=== PATIENT | female | born 1970 | race Caucasian/White ===

== ENCOUNTER 2019-02-07 15:30 | Emergency (ER) | payer MEDICAID ==
[~2019-02-07] VITALS: Ht 170.2 cm; Wt 75.0 kg
[2019-02-07] MEDS ORDERED: KETOROLAC 30MG/ML VIAL IV STA (18:39)
[2019-02-07] MEDS ORDERED: BACITRACIN ZINC OINT UDPKT TOP ONE (18:45)
[2019-02-07] MEDS ORDERED: LIDOCAINE 1%/EPI 1:100,000 10 ML VIAL IJ ONE (18:45)
[2019-02-07] MEDS ORDERED: VANCOMYCIN 1 G PREMIX 200 ML IV SCH (18:45)
[2019-02-07] MEDS ORDERED: LIDOCAINE HCL/EPINEPHRINE 1%-EPI 1:100,000 20 ML VIAL INFIL NR (20:30)
[2019-02-07] MEDS ORDERED: BACITRACIN 15GM TUBE TOP NR (20:30)
[2019-02-07 22:56] VITALS: BP 148/65
== END 2019-02-07 22:58 | disposition home or self-care (01) ==
LOC: ER 15:30
DX: S70.362A Insect bite (nonvenomous), left thigh, initial encounter (principal); W57.XXXA Bitten or stung by nonvenomous insect and other nonvenomous arthropods, initial encounter; Y93.9 Activity, unspecified; Y92.9 Unspecified place or not applicable
CPT/HCPCS: 96365; 96366; 96375; 99283; J1885; J3370; J3490; Z7610

== ENCOUNTER 2019-02-09 11:41 | Emergency (ER) | payer MEDICAID ==
[~2019-02-09] VITALS: Ht 162.6 cm; Wt 68.0 kg
[2019-02-09] MEDS ORDERED: AMOX125S12 PO (12:46)
[2019-02-09] MEDS ORDERED: IBUPROFEN 600MG TABLET PO ONE (14:45)
[2019-02-09 15:36] VITALS: BP 171/94
== END 2019-02-09 17:22 | disposition home or self-care (01) ==
LOC: ER 12:58
DX: L02.416 Cutaneous abscess of left lower limb (principal)
CPT/HCPCS: 99283

== ENCOUNTER 2019-02-12 11:26 | Emergency (ER) | payer MEDICAID ==
[~2019-02-12] VITALS: Ht 170.2 cm; Wt 75.0 kg
[~2019-02-12 11:26] MED LIST: AMOX125S12 PO
[2019-02-12 11:34] VITALS: BP 150/80
== END 2019-02-12 14:45 | disposition home or self-care (01) ==
LOC: ER 14:45
DX: Z48.00 Encounter for change or removal of nonsurgical wound dressing (principal)
CPT/HCPCS: 99281

== ENCOUNTER 2019-02-14 15:54 | Inpatient (IN) | payer MEDICAID ==
[~2019-02-14] VITALS: Ht 167.6 cm; Wt 76.2 kg
[2019-02-14] MEDS ORDERED: PIPERACILLIN/TAZ 3.375G PREMIX 50 ML IV ONE (18:00)
[2019-02-14] MEDS ORDERED: SODIUM CHLORIDE 0.9% 1000ML BAG (SEPSIS BOLUS) IV ONE (18:00)
[2019-02-14] MEDS ORDERED: VANCOMYCIN 1 G PREMIX 200 ML IV ONE (18:00)
[2019-02-14 18:07] LABS: EOSINOPHILS % 0.5 % (0.0-5.0); HEMATOCRIT. 33.1 % (36.0-48.0); HEMOGLOBIN. 10.9 g/dL (12.0-16.0); LYMPHOCYTES % 31.5 % (20.0-50.0); MEAN CORPUSCULAR HEMOGLOBIN 27.3 pg (28.0-32.0); MEAN CORPUSCULAR VOLUME 82.6 fL (81.0-99.0); MEAN PLATELET VOLUME 7.2 fl (7.4-10.4); MONOCYTES % 7.6 % (2.0-8.0); NEUTROPHILS % 59.4 % (40.0-76.0); PLATELET 477 x1000/uL (130-400); RED BLOOD CELL COUNT 4.01 mill/uL (4.2-5.4); RED CELL DISTRIBUTION WIDTH 16.4 % (11.6-14.6)
[2019-02-14 18:14] LABS: CHLORIDE 107 mEq/L (98-107); PROTHROMBIN TIME 10.2 sec (9.6-11.0)
[2019-02-14 18:20] LABS: C REACTIVE PROTEIN QUANT 3.1 mg/L (0.0-3.0)
[2019-02-14 18:21] LABS: CLARITY URINE CLEAR (CLEAR); COLOR URINE YELLOW (YELLOW); KETONES URINE NEGATIVE (NEGATIVE); LEUKOCYTE ESTERASE URINE NEGATIVE (NEGATIVE); NITRITE URINE NEGATIVE (NEGATIVE); OCCULT BLOOD URINE TRACE (NEGATIVE); PROTEIN URINE NEGATIVE (NEGATIVE); SPECIFIC GRAVITY URINE 1.027 (1.005-1.030); UROBILINOGEN URINE 0.2 E.U./dL (0.2-1.0)
[2019-02-14 21:00] VITALS: BP 168/86
[2019-02-14] MEDS ORDERED: IPRATROPIUM/ALBUTEROL 0.5-3(2.5)MG/3ML NEB NEB PRN (21:45)
[2019-02-14] MEDS ORDERED: MORPHINE SULFATE 2 MG/ML CPJ (NOT FOR IM USE) IV PRN (21:45)
[2019-02-14] MEDS ORDERED: CLONIDINE 0.1MG TABLET PO PRN (21:45)
[2019-02-14] MEDS ORDERED: PIPERACILLIN/TAZ 3.375G PREMIX 50 ML IV SCH (21:45)
[2019-02-14] MEDS ORDERED: ONDANSETRON HCL 4MG/2ML INJ IV PRN (21:45)
[2019-02-15] VITALS (7 sets, daily range): BP systolic 137–168; BP diastolic 66–86
[2019-02-15] MEDS: PIPERACILLIN/TAZOBACTAM 3.375 G in DEXT 5% WATER 100 ML IV SCH ×2 (02:20→09:02)
[2019-02-15] MEDS: VANCOMYCIN 1 G PREMIX 200 ML IV SCH ×2 (05:58→17:09)
[2019-02-15 05:59] LABS: CHLORIDE 108 mEq/L (98-107)
[2019-02-15 06:34] LABS: BASOPHILS % 0.8 % (0.0-2.0); EOSINOPHILS % 1.1 % (0.0-5.0); HEMATOCRIT. 32.1 % (36.0-48.0); HEMOGLOBIN. 10.5 g/dL (12.0-16.0); LYMPHOCYTES % 39.7 % (20.0-50.0); MEAN CORPUSCULAR HEMOGLOBIN 27.1 pg (28.0-32.0); MEAN CORPUSCULAR VOLUME 82.8 fL (81.0-99.0); MEAN PLATELET VOLUME 7.8 fl (7.4-10.4); MONOCYTES % 9.9 % (2.0-8.0); NEUTROPHILS % 48.5 % (40.0-76.0); PLATELET 471 x1000/uL (130-400); RED BLOOD CELL COUNT 3.87 mill/uL (4.2-5.4); RED CELL DISTRIBUTION WIDTH 16.3 % (11.6-14.6)
[2019-02-15] MEDS: ENOXAPARIN 40MG/0.4ML SYR SUBCUT SCH (09:02)
[2019-02-15] MEDS: ACETAMINOPHEN 325MG TABLET PO PRN (11:40)
[2019-02-15] MEDS ORDERED: LIDOCAINE HCL/EPINEPHRINE 1%-EPI 1:100,000 20 ML VIAL INFIL NR (17:30)
[2019-02-16] VITALS: BP 136/78
[2019-02-16] MEDS: ACETAMINOPHEN 325MG TABLET PO PRN ×2 (00:20→07:15)
[2019-02-16 04:00] VITALS: BP 136/81
[2019-02-16] MEDS: VANCOMYCIN 1 G PREMIX 200 ML IV SCH (06:39)
[2019-02-16 08:00] VITALS: BP 132/78
[2019-02-16] MEDS: ENOXAPARIN 40MG/0.4ML SYR SUBCUT SCH (08:42)
[2019-02-16 12:00] VITALS: BP 113/60
[2019-02-16 16:00] VITALS: BP 108/57
[2019-02-16 16:22] VITALS: BP 113/60
[2019-02-16] MEDS ORDERED: VANCOMYCIN 1250MG in DEXTROSE 5% WATER 250ML IV SCH (18:00)
== END 2019-02-16 16:56 | disposition home or self-care (01) | DRG 383 ==
LOC: ER 15:54 → EDBEDREQ 18:36 → 6EST 19:00 → ENRESERV 19:57
PROVIDERS: ADMIT Internal Medicine; ATTEND Internal Medicine
DX: L02.416 Cutaneous abscess of left lower limb (principal); E87.2 Acidosis; B95.62 Methicillin resistant Staphylococcus aureus infection as the cause of diseases classified elsewhere; D64.9 Anemia, unspecified; L03.116 Cellulitis of left lower limb; Z88.1 Allergy status to other antibiotic agents
CPT/HCPCS: 36415; 71045; 73552; 73700; 80048; 80202; 81003; 83605; 84145; 85651; 86140; 87070; 87075; 87077; 93005; 93970; 99285; J1650; J2543; J3370; J3490; J7030; J7060

== ENCOUNTER 2019-02-23 11:41 | Emergency (ER) | payer MEDICAID ==
[~2019-02-23] VITALS: Ht 162.6 cm; Wt 77.0 kg
[2019-02-23 12:16] VITALS: BP 150/78
== END 2019-02-23 13:07 | disposition home or self-care (01) ==
LOC: ER 13:04
DX: L03.116 Cellulitis of left lower limb (principal); Z98.890 Other specified postprocedural states
CPT/HCPCS: 99283